=== PATIENT | male | born 1955 | race Caucasian/White ===

== ENCOUNTER 2016-12-09 12:17 | Inpatient (IN) | payer BC ==
--- NOTE | ~2016-12-09 | CN ---
Consultation Report [facility] [address] [place]. [address] NAME: CHARLETTE JONES II : 53 STATUS : ADM IN PAT#: [id number] AGE: 61 ADM/REG DATE : 12/09/16 MR#: [id number] REPORT SERV DATE: 12/10/16 DICTATED BY: CONNOR JAUREGUI DATE: 12/10/16 REPORT STATUS : Draft TRANSCRIBED BY: MODL DATE: 12/10/16 INFECTIOUS DISEASE CONSULT DATE OF CONSULTATION: REASON FOR REFERRAL: Evaluation and treatment of possible foot infection. HISTORY OF PRESENT ILLNESS: This patient is a 61-year-old male. He has a history of diabetes mellitus, has been poorly controlled. He has not really been followed closely by anyone after his previous primary care physician moved away from the [facility]. He has peripheral neuropathy, has a severe Charcot malformation in his left foot. Last year, he was treated several times for cellulitis of that foot with no certain evidence that the bone was infected. He had prior infections of knee and also osteomyelitis of the hand. Whenever cultures have been taken and are positive, they have always shown methicillin- resistant Staph aureus. Beginning in March, he was followed by Dr. Campbell of [facility] who felt that the Charcot malformation was causing a lot of his problems and has worked on alleviating the difficulties with that with custom made shoes etc. over the last year. In the last several months, the foot has become increasingly warm and red. He has poor sensation in it, is not complaining of pain. He had an unexplained episode of methicillin-resistant Staph aureus in his blood in September and also uncertain treatment for that. He has had other complaints such as low-back pain and has been admitted for a more thorough evaluation of all of this. His white blood cell count, sed rate, and C-reactive protein are all markedly elevated. Imaging of the foot has been difficult to interpret because of Charcot malformation. A biopsy done by Interventional Radiology was negative for osteo, but he is being considered for an open procedure by Dr. Campbell today to get better visualization and do a better directed biopsy. He has not been on any antibiotics since October here. He has had a temperature max of 99.9. PAST MEDICAL HISTORY: Otherwise unremarkable. MEDICATIONS: As mentioned above. ALLERGIES: HE HAS NO KNOWN ANTIMICROBIAL ALLERGIES. 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 HE IS UNMARRIED. HE IS CURRENTLY NOT SMOKING. NO HISTORY OF ALCOHOL OR SUBSTANCE ABUSE. FAMILY HISTORY: Diabetes and hypertension. PHYSICAL EXAMINATION: GENERAL: Nontoxic, adult male, in no acute distress. He is alert and oriented x3. VITAL SIGNS: His temperature is 99.9, pulse 78, respirations 16, blood pressure 139/80, weight 108 kg. HEENT: Sclerae clear. No oral lesions. NECK: Supple without lymphadenopathy. Consultation Report [facility] [id number] [place]. [address] NAME: CHARLETTE JONES II : 53 STATUS : ADM IN PAT#: [id number] AGE: 61 ADM/REG DATE : 12/09/16 MR#: [id number] REPORT SERV DATE: 12/10/16 DICTATED BY: CONNOR JAUREGUI DATE: 12/10/16 REPORT STATUS : Draft TRANSCRIBED BY: DIONICIO DATE: 12/10/16 LUNGS: Clear. HEART: Regular rate and rhythm. No murmurs appreciated. ABDOMEN: Soft, nontender. Positive bowel sounds. EXTREMITIES: Left foot is markedly swollen with a Charcot malformation laterally. It is hot and red. There are no open lesions. No drainage. No fluctuance palpated. No other extremity skin or soft tissue lesions. LABORATORY DATA: White count 14.7, hematocrit 31.7, platelets 487. Sedimentation rate 95. BUN and creatinine 16 and 0.92, procalcitonin 0.2. His C-reactive protein is 168. Blood cultures taken just yesterday afternoon remain negative. An x-ray of his spine plain films have shown some abnormalities in the lumbar spine but no clear evidence of osteomyelitis. The transthoracic echocardiogram showed no valve lesions. IMPRESSION: Suspect that he indeed has an infection that is the cause of his acute phase reactant elevations of the foot seems to me to be the most likely source at present based on the workup thus far. RECOMMENDATIONS: 1. Agree with the bone biopsy as planned by Dr. Campbell. I would recommend proceeding with that. 2. Hold antibiotics after the procedure and then I would begin empiric vancomycin. Finally, I will follow the patient with you. I appreciate very much your consulting on this patient. MIKE Connor Jauregui M.D. / [id number] CC: Gerda Leyva DO
--- NOTE | ~2016-12-09 | OP ---
Record Of Operation [facility] [address] [place]. [address] NAME: CHARLETTE JONES II : 53 STATUS : ADM IN PAT#: [id number] AGE: 61 ADM/REG DATE : 12/09/16 MR#: [id number] REPORT SERV DATE: 12/13/16 DICTATED BY: RAHEL GERARD DATE: 12/13/16 REPORT STATUS : Draft TRANSCRIBED BY: DIONICIO DATE: 12/13/16 DATE OF PROCEDURE: 12/13/2016 PREOPERATIVE DIAGNOSES: 1. Left midfoot Charcot arthropathy. 2. Left midfoot osteomyelitis. POSTOPERATIVE DIAGNOSES: 1. Left midfoot Charcot arthropathy. 2. Left midfoot osteomyelitis. PROCEDURE: Left below-knee amputation. ANESTHESIA: General. COMPLICATIONS: None. INDICATION FOR OPERATION: Charlette Jones is a pleasant 61-year-old male, with longstanding history of pain and problems with his left foot. He was diagnosed with Charcot arthropathy. He has been treated non-operatively with mobilization and periods of limited weightbearing. Workup to rule out infection included MRIs with gadolinium as well as needle aspiration of the midfoot as well as bone biopsy. These failed to reveal infection. It is felt that he developed a late hematogenous seeding of his midfoot. He has had prior finger amputation as well as a left knee wound, both of which were infected with MRSA. I felt that at some point the infection seeded his left foot. Risks and benefits of surgical intervention were discussed at length with the patient. Preoperative counseling with prosthesis was performed as well. All of his questions were answered. He wished to proceed. DESCRIPTION OF PROCEDURE: Mr. Jones was brought back to operating room after general anesthesia was initiated. Left lower extremity was prepped and draped in usual sterile fashion. Impermeable stockinette was placed over the foot, leg was elevated, and a well- padded thigh tourniquet was inflated. Proposed surgical incisions were drawn on the skin. We made our tibial cut approximately 15 to 17 cm distal to the medial joint line. The long posterior flap was utilized as it was felt that his blood supply at the mid tibia was adequate for healing. Proposed surgical incisions were drawn on the skin. A #10 knife blade was used to perform a full-thickness skin incisions. We used a "no-touch" technique throughout the case. An incision was brought down to the tibia anteriorly where a small periosteal flap was elevated. A beveled tibial cut was made. Next, we carefully dissected out the fibula. Fibular cut was made a centimeter or so proximal to the tibial cut. We used a small sagittal saw. Next, we completed the amputation with a beveled cut of the posterior flap. The 3 major neurovascular bundles were isolated. The arterial and venous structures were carefully dissected out, clamped, and ligated with doubled 0 silk ties. Local smaller vessels were cauterized. Slow cauterization of the nerves was performed followed by bearing the distal stumps of the nerve in the surrounding musculature. At this Record Of Operation [address] [place]. [address] NAME: CHARLETTE JONES II : 53 STATUS : ADM IN [facility]#: [id number] AGE: 61 ADM/REG DATE : 12/09/16 MR#: [id number] REPORT SERV DATE: 12/13/16 DICTATED BY: RAHEL GERARD DATE: 12/13/16 REPORT STATUS : Draft TRANSCRIBED BY: MODL DATE: 12/13/16 time, tourniquet was deflated. Additional cauterization was performed as needed. The wound bed was dry. A myodesis was performed with suturing of the posterior flap into the distal tibia through small drill holes. Additional deep fascial closure was performed with interrupted #1 Ethibond suture. Subcutaneous tissues and skin were closed using a "no- touch" technique with final skin closure being interrupted 2-0 nylon suture. Bulky sterile dressings were applied and the knee was mobilized in an appropriately fitting knee immobilizer. The patient did well throughout the case. He awoke in the operating room and was transferred to recovery room in satisfactory condition. MMB/TRACYL Rahel Gerard MD / [id number] CC: Gerda Leyva DO
--- NOTE | ~2016-12-09 | IDS ---
Interim Discharge Summary [facility] [address] [place]. [address] NAME: CHARLETTE JONES II : 53 STATUS : ADM IN [facility]#: [id number] AGE: 61 ADM/REG DATE : 12/09/16 MR#: [id number] REPORT SERV DATE: 12/13/16 DICTATED BY: DATE: REPORT STATUS : Draft TRANSCRIBED BY: MODL DATE: 12/13/16 ADMISSION DATE: 12/09/2016 DISCHARGE DATE: The patient is admitted to the [facility] Hospitalist Service. CONSULTANTS: Include Dr. Paul Campbell of Orthopedics and Dr. Tristan Hanson of Infectious Disease. CURRENT DIAGNOSES: 1. MRSA bacteremia. 2. MRSA osteomyelitis of the left foot-for left BKA today. 3. Left foot cellulitis. 4. History of Charcot arthropathy of the left foot. 5. History of hypertension-not presently requiring medication. 6. History of diabetes mellitus type 2-diet controlled here with last known hemoglobin A1c 7.5 in November. 7. Severe protein calorie malnutrition-due to prolonged illness, eating well, presently. 8. Hyponatremia at admission-due to polydipsia. Patient counseled. Sodium values improved. 9. Mild anemia-suspect due to chronic inflammation. IMAGING AND DIAGNOSTICS: 1. Bilateral lower extremity venous Doppler ultrasound 12/09 to rule out DVT shows no evidence of DVT. Prominent lymph nodes in the left groin reactive given history of left foot osteomyelitis. 2. Arterial Dopplers of bilateral lower extremities shows no Doppler evidence of significant right lower extremity arterial occlusive disease. Femb-tj-vvsnrfrz left lower extremity arterial occlusive disease originating at the iliac with biphasic flow seen in the left common femoral artery. Some superimposed infrapopliteal arterial occlusive disease with hyperemic monophasic flow in the calf vessels. Left ankle- brachial index is normal but suspect may be falsely elevated due to poor vessel compressibility. 3. Plain films of the thoracic and lumbar spine on 12/09 to evaluate for discitis shows mild compression deformity of superior endplate of T12 and L1. Age indeterminate. 4. Plain films of the left foot show extremely severe osteolytic destruction of the bones of the left foot involving most of the bones and the proximal metatarsals as well. Destruction considerably worse from prior exam of 03/19/2016. 5. PA lateral chest x-ray 12/09 for fevers shows clear lungs. 6. Echocardiogram, 12/09 shows no evidence of valvular vegetations. PERTINENT LABS: 1. Blood cultures x2 on 12/09 positive for MRSA. 2. Surgical cultures 12/11 positive for MRSA. BRIEF HISTORY: For full details please see the previously dictated history of present Interim Discharge Summary [facility] [place]. [address] NAME: CHARLETTE JONES II : 53 STATUS : ADM IN PAT#: [id number] AGE: 61 ADM/REG DATE : 12/09/16 MR#: [id number] REPORT SERV DATE: 12/13/16 DICTATED BY: DATE: REPORT STATUS : Draft TRANSCRIBED BY: MODL DATE: 12/13/16 illness. Mr. Jones is a 61-year-old white male who has been treated for multiple episodes of left foot cellulitis, and episodes of MRSA bacteremia since the summer. He was being followed in the outpatient setting by Dr. Paul Campbell with concern for possible left foot osteomyelitis, but recently negative or nondefinitive MRI of the left foot and CT-guided bone biopsy. Despite this, patient was continuing to experience intermittent low-grade fevers, night sweats, nausea, and vomiting when febrile, progressive weakness, and decline in oral intake. Because of progressive general decline and for open bone biopsy, the patient was admitted to the Hospitalist Service on 12/09. HOSPITAL COURSE: Multiple initial diagnostics were obtained to evaluate for source and sequelae of MRSA bacteremia. The patient did have blood cultures which were positive in 09/2016, but for an unknown reason, the patient was not aware of these results and was not treated at that point. He did have some back pain at admission in addition to left foot pain. His back was imaged to ensure no seeding of vertebral bodies, and the plain films were normal. Echocardiogram was obtained to ensure no valvular vegetations and was normal. The patient underwent an open bone biopsy by Dr. Paul Campbell on 12/10. He also had incision and drainage of 2 fluid pockets at that point. Cultures from the left foot demonstrated MRSA, and blood cultures were positive as well. Infectious Disease was consulted and patient was initiated on vancomycin. The resultant surgical pathology demonstrated acute osteomyelitis and patient is scheduled for a left kjdiv-ecw-kozh amputation today. Anticipate that he will require physical therapy evaluation and rehab placement following hospitalization. Dr. Hanson also would like the patient to receive 2 weeks of vancomycin via PICC line following amputation given that he has MRSA bacteremia. He will require surveillance blood cultures 1-2 weeks after discontinuation in order to document clearance. The patient has history of other chronic medical conditions such as hypertension and non- insulin-dependent diabetes mellitus type 2. Also reportedly has a history of hypothyroidism and was noted to be hyponatremic at admission. His blood pressure has not been sufficiently elevated to require any medications this admission, nor have his blood sugars. His last A1c is 7.5 in November, but suspect that he is now diet controlled due to recent 30 to 40 pound weight loss from illness. TSH was checked here and was normal. Regarding hyponatremia, patient has been in the habit of consuming over 200 ounces of plain water daily, because he thought this would help with his diabetes. He was counseled to likely consume no more than 64 ounces daily to avoid hyponatremia due to polydipsia. DISPOSITION: The patient remains hospitalized for left below the knee amputation with postop rehab eval and rehab placement pending as well as 2 additional weeks of IV antibiotics and repeat surveillance blood cultures as above. AKS/MODL Interim Discharge Summary [address] [address] NAME: CHARLETTE JONES II : 53 STATUS : ADM IN [facility]#: [id number] AGE: 61 ADM/REG DATE : 12/09/16 MR#: [id number] REPORT SERV DATE: 12/13/16 DICTATED BY: DATE: REPORT STATUS : Draft TRANSCRIBED BY: DIONICIO DATE: 12/13/16 Miguel Chambers M.D. / [id number] CC: Gerda Leyva DO
--- NOTE | ~2016-12-09 | OP ---
Record Of Operation [facility] [address] [place]. [address] NAME: CHARLETTE JONES II : 53 STATUS : ADM Pepper PAT#: [id number] AGE: 61 ADM/REG DATE : 12/09/16 MR#: [id number] REPORT SERV DATE: 12/10/16 DICTATED BY: RAHEL GERARD DATE: 12/10/16 REPORT STATUS : Draft TRANSCRIBED BY: MODEvelio DATE: 12/10/16 DATE OF PROCEDURE: 12/10/2016 PREOPERATIVE DIAGNOSES: 1. Diabetes with neuropathy. 2. Left foot Charcot. 3. Possible left foot osteomyelitis. POSTOPERATIVE DIAGNOSES: 1. Diabetes with neuropathy. 2. Left foot Charcot. 3. Possible left foot osteomyelitis. PROCEDURE: 1. Left foot medial bone biopsy. 2. Left foot lateral bone biopsy. 3. Irrigation and debridement down to including bone, left medial wound. 4. Irrigation and debridement down to including bone, left lateral wound. ANESTHESIA: General. COMPLICATIONS: None. SPRINKLER TENDER: None. INDICATION FOR OPERATION: Charlette Jones is a pleasant 61-year-old male with a long- standing and complicated course involving his left lower extremity. He has been treated repeatedly for cellulitis as well as Charcot arthropathy. He underwent previous needle aspiration of the foot as well as bone biopsy. Both were negative for deep infection. Due to the continued symptoms despite prior antibiotics, I propose the above-mentioned surgery. Risks and benefits of this surgical intervention were discussed at length with the patient as well as his son. All other questions were answered. They wished to proceed. Mr. Jones was brought back to the operating room, where general anesthesia was initiated. Left lower extremity was prepped and draped in usual sterile fashion. Leg was elevated, and well-padded calf tourniquet was inflated. A medial lateral surgical approach to the mid foot was performed. Longitudinal incision was made medially at the interval between the posterior tibial and anterior tibial tendons. Blunt dissection was used to protect local neurovascular structures. Deep dissection was performed through the deep fascia. This opened up the medial hindfoot and midfoot joints. There was some cloudy appearing fluid. There is no gross purulence. We sent samples of tissue and fluid for aerobic and anaerobic cultures as well as Gram stain. We also performed a deep bone biopsy. This has been included bones of the calcaneus as well as the talus. Bone was sent to pathology for evaluation. Next, we approached the lateral hindfoot. An incision was made extending from the tip of the fibula towards the base of the fourth metatarsal. Incision was carried deeper. We exposed what appeared to be a large fluid collection of cloudy appearing fluid. Record Of Operation [facility] [address] [place]. [address] NAME: CHARLETTE JONES II : 53 STATUS : ADM Pepper PAT#: [id number] AGE: 61 ADM/REG DATE : 12/09/16 MR#: [id number] REPORT SERV DATE: 12/10/16 DICTATED BY: RAHEL GERARD DATE: 12/10/16 REPORT STATUS : Draft TRANSCRIBED BY: DIONICIO DATE: 12/10/16 Deeper dissection was performed which exposed bones of the hindfoot and the midfoot. Again, deep tissue as well as fluid was sent separately for this lateral wound. We also sent a deep bone biopsy to pathology as well as microbiology for full evaluation. At this time, copious irrigation was performed. Sequential irrigation and debridement was performed with the use of a Pulsavac until all necrotic and devitalized tissue had been thoroughly removed. Once the debridement was completed, the wound was packed with 1 inch iodoform Nu Gauze. Bulky sterile dressings were applied, and a well-padded posterior splint was placed. The patient did well throughout the case. He awoke in the operating room and was transferred to recovery room in satisfactory condition. We had a preoperative discussion with Mr. Jones regarding the potential diagnosis of osteomyelitis of his midfoot. We discussed future treatment options to include below-knee amputation. OSCAR/DIONICIO Rahel Gerard MD / [id number] CC: Gerda Leyva DO
--- NOTE | ~2016-12-09 | DS ---
Discharge Summary [facility] [address] [place]. [address] NAME: CHARLETTE JONES II : 53 STATUS : DIS IN PAT#: [id number] AGE: 61 ADM/REG DATE : 12/09/16 MR#: [id number] REPORT SERV DATE: 12/16/16 DICTATED BY: PAUL ANTHONY DATE: 12/16/16 REPORT STATUS : Draft TRANSCRIBED BY: MODL DATE: 12/16/16 ADMISSION DATE: 12/09/2016 DISCHARGE DATE: 12/16/2016 FINAL DIAGNOSES: 1. Methicillin-resistant Staphylococcus aureus bacteremia. 2. Methicillin-resistant Staphylococcus aureus left foot osteomyelitis, status post below knee amputation. 3. Diabetes. 4. Status post hyponatremia. 5. Chronic anemia. CONSULTATION: Dr. Hanson, for ID consultation. HOSPITAL COURSE: Please refer to the H and P done by Dr. Chambers dated on 12/09/2016 and her interim discharge summary done on 12/13/2016. Since I took care of this patient, the patient is status post BKA and pathology showed that there was viable tissue at the margins of the operation. The patient was seen by Ortho afterwards and they cleared the patient for rehab. Meanwhile, ID has been following up the patient, followed up all the cultures and recommended vancomycin until 12/27/2016, they also signed off. The patient worked with PT, and now, we got approval for the patient to go to [facility], so the patient will be discharged there for rehab. He will be following up with the rehab doctor, then follow up with the PCP, Garth Rosas, after rehab discharge, then follow up with Ortho, Dr. Campbell in two weeks. The patient will be on the following medications. Colace 100 mg twice a day subcu insulin protocol level 1, metformin 500 mg twice a day, vancomycin q.12 hours 1500 mg until 12/27/2016, Percocet 5/325 one tab p.o. q.6 hours p.r.n. The patient will have his blood work taken CBC, basic metabolic panel, and vancomycin trough to be sent to Dr. Hanson while the patient is on vancomycin. This has been explained to the patient, he agreed and understood the plan. DERIAN/DIONICIO Paul Anthony M.D. / [id number] CC: Gerda Chen DO
--- NOTE | ~2016-12-09 | HP ---
History And Physical [address] [place]. [address] NAME: CHARLETTE JONES II : 53 STATUS : ADM [facility]#: [id number] AGE: 61 ADM/REG DATE : 12/09/16 MR#: [id number] REPORT SERV DATE: 12/09/16 DICTATED BY: DATE: REPORT STATUS : Draft TRANSCRIBED BY: MODL DATE: 12/09/16 DATE OF ADMISSION: 12/09/2016 The patient was admitted to the [facility]. CHIEF COMPLAINT: Left foot pain, failure to thrive. HISTORY OF PRESENT ILLNESS: Mr. Jones is a 61-year-old white male, who had minimal past medical history prior to 09/2015 when he developed right middle finger osteomyelitis and underwent irrigation and debridement of the right middle finger with a partial tibial amputation. The patient was found to have MRSA in the bone as well as two sets of blood cultures and was treated with oral antibiotics for 10 days following the amputation. In 01/2016, he required repeat incision and drainage of the finger, with culture also growing sparse MRSA. Then, the patient began to develop cellulitic changes in the left foot, with multiple hospitalizations at [facility] between 02/2016 and 03/2016 for MRSA cellulitis. He was seen by Dr. Jimmie Glez last March for the left lower extremity cellulitis and treated with vancomycin. He was also seen in consultation during the 03/[address] Paul Campbell of Orthopedics. Moving forward to 2016, the patient recently has been experiencing an increase in the swelling and pain in his left foot for which Dr. Campbell has continued to follow him. The patient recently went through a transition on primary care providers and is now seeing Dr. Eliud Rosas had his first appointment with him in November. The patient also had a recent [facility] Emergency Department visit with nonspecific symptoms of shortness of breath and underwent extensive diagnostics which were normal. He reports that he was sent home on an unknown antibiotic from the emergency department. On 12/01/2016, he was scheduled as an outpatient for a CT-guided biopsy of the left foot to evaluate for osteomyelitis. There has been documented concern for over a year now that the patient may have acute or chronic osteomyelitis in the left foot. He has a history of Charcot arthropathy, and this has confounded some of the ability to interpret imaging results. The biopsy which occurred on 12/01/2016 did not demonstrate acute osteomyelitis, and the patient was following up in Dr. Campbell's office for the results of that pathology today. Dr. Campbell's office contacted the Hospitalist Service for admission because the patient's left foot has become progressively swollen, red, painful from recent outpatient evaluations. Also the patient and his son were endorsing many symptoms of failure to thrive for the past year including fevers and chills, night sweats, poor oral intake, 30-pound weight loss, nausea, vomiting, loose stools, and weakness. 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 The patient and his son are concerned for the progressive debility, and concerned that there is not yet an explanation for the patient's symptoms which began over a year ago now. The patient does have a past history of diabetes which used to be poorly controlled, but recently has not requiring any medication and reports that his blood sugars are less than History And Physical [address] [address] [facility] [place]. [address] NAME: CHARLETTE JONES II : 53 STATUS : ADM [facility]#: [id number] AGE: 61 ADM/REG DATE : 12/09/16 MR#: [id number] REPORT SERV DATE: 12/09/16 DICTATED BY: DATE: REPORT STATUS : Draft TRANSCRIBED BY: MODL DATE: 12/09/16 130 when he checks. He used to have hypertension, but with weight loss, he is not requiring any medications for that. He has a documented history of hypothyroidism, but is not currently taking thyroid replacement therapy. He also has a history of peripheral neuropathy. REVIEW OF SYSTEMS: A full 14-point review of systems is as dictated in the history of present illness. PAST MEDICAL HISTORY: Includes 1. 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 2. History of MRSA bacteremia, as recently as 09/29/2016. Unknown whether the patient was treated for MRSA bacteremia at this point. He also had MRSA bacteremia in 09/2015. 3. History of Charcot arthropathy in the left foot, with recurrent cellulitis and ongoing concern for osteomyelitis. 4. Mzd-zhughjf-nzyngwcet diabetes mellitus type 2-currently diet controlled. 5. Hypertension. 6. Hypothyroidism. 7. Peripheral neuropathy. PAST SURGICAL HISTORY: Includes right middle finger surgery incision and drainage and also recent CT-guided bone biopsy of the left foot. ALLERGIES: NO KNOWN DRUG ALLERGIES. MEDICATIONS: Current medications include Excedrin Extra Strength taken as needed. SOCIAL HISTORY: The patient is unmarried. His son is here at the bedside. He used to work inspecting homes, but is presently unable to work due to symptoms above. No history of tobacco, alcohol, or illicit substances. FAMILY HISTORY: Diabetes and hypertension. PHYSICAL EXAMINATION: VITAL SIGNS: Temperature 98.7, pulse 92, respirations 18, oxygen saturations 97% on room air, and blood pressure 132/79. GENERAL: This is a well-developed, well-nourished appearing white male, in no acute distress. Alert and oriented in three dimensions. Pleasant, with a sarcastic sense of humor. HEENT: Normocephalic, atraumatic. Pupils are equally round and reactive to light. No scleral icterus. No conjunctival pallor. No sinus tenderness to palpation. No nasal drainage. Oropharynx moist and pink with no posterior pharyngeal erythema or exudate. NECK: Supple with no lymphadenopathy. No jugular venous distention. No thyromegaly. CARDIOVASCULAR: Regular rate and rhythm. No murmurs, rubs or gallops. LUNGS: Clear to auscultation bilaterally. No wheezes or crackles. No rhonchi. ABDOMEN: Soft, nontender, and nondistended with normoactive bowel sounds in four quadrants and no hepatosplenomegaly. History And Physical [address] [address] NAME: CHARLETTE JONES II : 53 STATUS : ADM [facility]#: [id number] AGE: 61 ADM/REG DATE : 12/09/16 MR#: [id number] REPORT SERV DATE: 12/09/16 DICTATED BY: DATE: REPORT STATUS : Draft TRANSCRIBED BY: MODEvelio DATE: 12/09/16 EXTREMITIES: No cyanosis, clubbing, or edema of the right lower extremity. Left lower extremity is swollen 2+ to 3+, with nonpitting edema, exquisite tenderness to palpation of the left heel, and the left forefoot has diminished sensation. The patient is also tender along the Achilles tendon and with flexion and extension of the left foot. The edema extends up to the knee, but there is no erythema, lymphangitis, or tenderness to palpation of the lower aspect of the left leg. NEUROLOGIC: Cranial nerves 2 through 12 were tested and are intact. Deep tendon reflexes 2+ bilateral brachioradialis and patellar tendons. Sensation is intact to fine touch and temperature everywhere except in the feet. Strength is globally diminished at 4- out of 5. LABORATORY DATA: Recent labs from the patient's primary care provider were reviewed. Pertinent for sodium of 131, creatinine 1.05, glucose 118. Liver enzymes normal with the exception of alkaline phosphatase 118. Hemoglobin A1c was 7.5. Recent white blood cell count 15.6, hemoglobin 11.4, hematocrit 34.1, platelets 498. INR 1.4. Urinalysis from 11/17/2016 was negative. Recent imaging was reviewed as well. On 09/29/2016, the patient had plain films of the left ankle showing progressive Charcot arthropathy. On 11/11/2016, he had an MRI of the left lower extremity showing severe progressive destruction of the left midfoot with a pattern of development most suggestive of Charcot arthropathy. No superficial soft tissue ulcers. Minimal residual midfoot bones remaining and marrow edema involving metatarsals in hind foot including calcaneus and talus. Interval development of a small tibiotalar joint effusion and a 5 x 3 cm septated fluid collection over the dorsal lateral aspect of the midfoot. On 11/21/2016, the patient went to the emergency department with shortness of breath and had a PA and lateral chest x-ray which was normal. A CTA of the chest, which was negative for pulmonary embolism and showed mild cardiomegaly, but no congestive heart failure and also revealed nonspecific hepatic steatosis. He had a Doppler ultrasound of the left lower extremity showing no evidence of DVT but, some left inguinal adenopathy representing possible reactive change versus lymphoma or metastatic disease. IMPRESSION: 1. Left foot pain and swelling, from the heel and involving the Achilles - with ongoing suspicion for possible chronic versus acute osteomyelitis, in the context of advanced Charcot arthropathy. 2. 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 3. Symptoms of failure to thrive, progressive over the past year-including fever, chills, night sweats, poor oral intake, nausea, vomiting, diarrhea, weight loss, weakness progressive to the point that patient is no longer able to work. PLAN: 1. Observation and admission to room 509 - attending doctor, Miguel Chambers M.D. 2. Orthopedic consultation requested from Dr. Campbell. In discussion earlier today, he mentioned the possible need to perform an open bone biopsy of the left foot as the recent CT-guided biopsy did not yield any bacteria. However, the patient was recently treated with an unknown antibiotic for an upper respiratory tract infection, and this may have influenced the results. 3. Puente cultures - blood cultures, urine with urine culture if indicated, sputum if able to History And Physical [address] [address] NAME: CHARLETTE JONES II : 53 STATUS : ADM [facility]#: [id number] AGE: 61 ADM/REG DATE : 12/09/16 MR#: [id number] REPORT SERV DATE: 12/09/16 DICTATED BY: DATE: REPORT STATUS : Draft TRANSCRIBED BY: MODL DATE: 12/09/16 produce. Check a procalcitonin and lactic acid level as well. 4. Check stool studies if the patient is able to produce. 5. Check a peripheral blood smear to evaluate for any morphologic abnormalities. 6. Check chest x-ray, echocardiogram to rule out valvular vegetations, plain films of the thoracic spine and lumbar spine. This patient reported a recent history of some "kidney pain", and could be referring pain from vertebral bodies which could have been previously seeded. 7. No empiric antibiotics at present, in hopes of increasing the yield of any potential bone biopsies to occur this admission. 8. We will have a low threshold for involving Infectious Disease in consultation pending the results of the above workup. BERNARDO/DIONICIO Miguel Chambers M.D. / [id number] CC: Gerda Leyva DO Matthew M. Buchanan, MD
[~2016-12-09 12:17] MED LIST: ANTIBIOTIC CREAM TOP; AUG875 PO; CEFT5 PO; EXCEDRIN EXTRA1 EACH PO; FLORASTOR250 MG PO; GLUCOPHAGE1000 MG PO; GLUCPH PO; K500 PO; LEVOTHYROXIN25 MCG PO; MICONAZOLE2 % TOP; MONODOX100 MG PO; NEUR300 PO; PCET PO; PR25 PO; PRINZIDE1 TA1 PO; PROBIOTIC PO; SYN.025B PO; ZYVOXPO PO
[2016-12-09] MEDS ORDERED: EXCEDRIN EXTRA1 EACH PO (12:39)
[2016-12-09 15:57] LABS: BASOPHILS 0.3 %; BASOPHILS ABSOLUTE 0.05 10/3/uL (0.0-0.16); EOSINOPHILS 0.1 %; EOSINOPHILS ABSOLUTE 0.01 10/3/uL (0.0-0.53); HEMATOCRIT 31.7 % (40.0-51.0); HEMOGLOBIN 10.6 g/dL (13.6-17.8); IMMATURE GRANULOCYTES 0.4 %; IMMATURE GRANULOCYTES ABSOLUTE 0.06 10/3/uL (0.0-0.11); LYMPHOCYTES 13.9 %; LYMPHOCYTES ABSOLUTE 2.05 10/3/uL (0.67-4.30); MANUAL DIFF NO %; MEAN CORPUS HGB CONC 33.4 g/dL (32.0-36.0); MEAN CORPUSCULAR HEMOGLOB 26.6 pg (26.0-34.0); MEAN CORPUSCULAR VOLUME 79.6 fL (80-100); MEAN PLATELET VOLUME 8.8 fL (9.2-13.0); MONOCYTES 7.4 %; MONOCYTES ABSOLUTE 1.09 10/3/uL (0.21-1.20); NEUTROPHILS 77.9 %; NEUTROPHILS ABSOLUTE 11.44 10/3/uL (2.02-8.40); PLATELET COUNT 487 10/3/uL (150-400); RBC DISTRIBUTION WIDTH 16.1 % (12.0-16.0); RED CELL COUNT 3.98 10/6/uL (4.7-6.1); WHITE BLOOD CELLS 14.7 10/3/uL (4.5-10.5)
[2016-12-09 16:03] LABS: INTERNATIONAL NORMAL RATI 1.4 UNITS (-); PARTIAL THROMBO TIME 38.3 SEC (22.5-37.2); PROTIME (NOT ORD) 16.7 SEC (12.0-14.5)
[2016-12-09 16:13] LABS: BUN (BLOOD UREA NITROGEN) 16 MG/DL (6-23); CALCIUM, SERUM 8.4 MG/DL (8.5-10.4); CHLORIDE, SERUM 97 MMOL/L (96-112); CO2 (CARBON DIOXIDE) 27 MMOL/L (24-34); CREATININE 0.92 MG/DL (0.70-1.30); GFR AFRICAN AMERICAN 103 ML/MIN (>=60); GFR NON AFRICAN AMERICAN 89 ML/MIN (>=60); GLUCOSE, SERUM 141 MG/DL (60-99); POTASSIUM, SERUM 3.8 MMOL/L (3.5-5.3); PREALBUMIN 4.3 MG/DL (17.0-43.0); SGOT(AST) 43 U/L (5-40); SGPT(ALT) 19 U/L (5-65); SODIUM, SERUM 132 MMOL/L (135-148); TOTAL BILIRUBIN 0.8 MG/DL (0-1.2); TOTAL PROTEIN 8.1 G/DL (6.0-8.5)
[2016-12-09 16:14] LABS: A/G RATIO 0.3 (0.7-1.9); ALBUMIN 1.8 G/DL (3.5-5.0); ALKALINE PHOSPHATASE 152 U/L (45-117); GLOBULIN 6.3 G/DL (2.5-4.1)
[2016-12-09 18:01] LABS: SED RATE 95 MM/HR (0-15)
[2016-12-11 07:05] LABS: BASOPHILS 0.3 %; BASOPHILS ABSOLUTE 0.03 10/3/uL (0.0-0.16); EOSINOPHILS 2.3 %; EOSINOPHILS ABSOLUTE 0.26 10/3/uL (0.0-0.53); HEMATOCRIT 27.8 % (40.0-51.0); IMMATURE GRANULOCYTES 0.4 %; IMMATURE GRANULOCYTES ABSOLUTE 0.04 10/3/uL (0.0-0.11); LYMPHOCYTES ABSOLUTE 2.66 10/3/uL (0.67-4.30); MANUAL DIFF NO %; MEAN CORPUS HGB CONC 32.4 g/dL (32.0-36.0); MEAN CORPUSCULAR HEMOGLOB 26.1 pg (26.0-34.0); MEAN CORPUSCULAR VOLUME 80.6 fL (80-100); MEAN PLATELET VOLUME 8.5 fL (9.2-13.0); MONOCYTES 8.7 %; MONOCYTES ABSOLUTE 0.97 10/3/uL (0.21-1.20); NEUTROPHILS 64.3 %; NEUTROPHILS ABSOLUTE 7.13 10/3/uL (2.02-8.40); PLATELET COUNT 449 10/3/uL (150-400); RBC DISTRIBUTION WIDTH 16.3 % (12.0-16.0); RED CELL COUNT 3.45 10/6/uL (4.7-6.1); WHITE BLOOD CELLS 11.1 10/3/uL (4.5-10.5)
[2016-12-11 07:13] LABS: BUN (BLOOD UREA NITROGEN) 15 MG/DL (6-23); CALCIUM, SERUM 7.7 MG/DL (8.5-10.4); CHLORIDE, SERUM 100 MMOL/L (96-112); CO2 (CARBON DIOXIDE) 26 MMOL/L (24-34); CREATININE 0.82 MG/DL (0.70-1.30); GFR AFRICAN AMERICAN 110 ML/MIN (>=60); GFR NON AFRICAN AMERICAN 95 ML/MIN (>=60); POTASSIUM, SERUM 3.8 MMOL/L (3.5-5.3); SODIUM, SERUM 134 MMOL/L (135-148)
[2016-12-11 07:15] LABS: GLUCOSE, SERUM 107 MG/DL (60-99)
[2016-12-12 06:44] LABS: BASOPHILS 0.5 %; BASOPHILS ABSOLUTE 0.06 10/3/uL (0.0-0.16); EOSINOPHILS 3.7 %; HEMATOCRIT 28.1 % (40.0-51.0); HEMOGLOBIN 9.1 g/dL (13.6-17.8); IMMATURE GRANULOCYTES 0.5 %; IMMATURE GRANULOCYTES ABSOLUTE 0.05 10/3/uL (0.0-0.11); LYMPHOCYTES 25.8 %; LYMPHOCYTES ABSOLUTE 2.82 10/3/uL (0.67-4.30); MEAN CORPUS HGB CONC 32.4 g/dL (32.0-36.0); MEAN CORPUSCULAR HEMOGLOB 26.2 pg (26.0-34.0); MEAN PLATELET VOLUME 8.4 fL (9.2-13.0); MONOCYTES 7.3 %; NEUTROPHILS 62.2 %; NEUTROPHILS ABSOLUTE 6.79 10/3/uL (2.02-8.40); PLATELET COUNT 461 10/3/uL (150-400); RBC DISTRIBUTION WIDTH 16.4 % (12.0-16.0); RED CELL COUNT 3.47 10/6/uL (4.7-6.1); WHITE BLOOD CELLS 10.9 10/3/uL (4.5-10.5)
[2016-12-12 06:46] LABS: MANUAL DIFF NO %
[2016-12-12 06:52] LABS: CALCIUM, SERUM 8.1 MG/DL (8.5-10.4); CHLORIDE, SERUM 102 MMOL/L (96-112); CO2 (CARBON DIOXIDE) 28 MMOL/L (24-34); CREATININE 0.79 MG/DL (0.70-1.30); GFR AFRICAN AMERICAN 112 ML/MIN (>=60); GFR NON AFRICAN AMERICAN 96 ML/MIN (>=60); GLUCOSE, SERUM 98 MG/DL (60-99); POTASSIUM, SERUM 3.8 MMOL/L (3.5-5.3); SODIUM, SERUM 138 MMOL/L (135-148)
[2016-12-12 06:53] LABS: BUN (BLOOD UREA NITROGEN) 9 MG/DL (6-23)
[2016-12-13 05:45] LABS: BUN (BLOOD UREA NITROGEN) 12 MG/DL (6-23); CALCIUM, SERUM 8.3 MG/DL (8.5-10.4); CHLORIDE, SERUM 103 MMOL/L (96-112); CO2 (CARBON DIOXIDE) 28 MMOL/L (24-34); CREATININE 0.83 MG/DL (0.70-1.30); GFR AFRICAN AMERICAN 109 ML/MIN (>=60); GFR NON AFRICAN AMERICAN 94 ML/MIN (>=60); GLUCOSE, SERUM 102 MG/DL (60-99); SODIUM, SERUM 137 MMOL/L (135-148)
[2016-12-13 05:57] LABS: BASOPHILS 0.3 %; BASOPHILS ABSOLUTE 0.03 10/3/uL (0.0-0.16); EOSINOPHILS 5.7 %; EOSINOPHILS ABSOLUTE 0.53 10/3/uL (0.0-0.53); HEMATOCRIT 29.2 % (40.0-51.0); HEMOGLOBIN 9.4 g/dL (13.6-17.8); IMMATURE GRANULOCYTES 0.2 %; IMMATURE GRANULOCYTES ABSOLUTE 0.02 10/3/uL (0.0-0.11); LYMPHOCYTES 29.7 %; LYMPHOCYTES ABSOLUTE 2.79 10/3/uL (0.67-4.30); MEAN CORPUS HGB CONC 32.2 g/dL (32.0-36.0); MEAN CORPUSCULAR HEMOGLOB 25.9 pg (26.0-34.0); MEAN CORPUSCULAR VOLUME 80.4 fL (80-100); MEAN PLATELET VOLUME 8.8 fL (9.2-13.0); MONOCYTES 6.2 %; MONOCYTES ABSOLUTE 0.58 10/3/uL (0.21-1.20); NEUTROPHILS 57.9 %; NEUTROPHILS ABSOLUTE 5.43 10/3/uL (2.02-8.40); PLATELET COUNT 479 10/3/uL (150-400); RBC DISTRIBUTION WIDTH 16.5 % (12.0-16.0); RED CELL COUNT 3.63 10/6/uL (4.7-6.1); WHITE BLOOD CELLS 9.4 10/3/uL (4.5-10.5)
[2016-12-13 06:01] LABS: MANUAL DIFF NO %
[2016-12-14 05:32] LABS: BASOPHILS 0.3 %; BASOPHILS ABSOLUTE 0.03 10/3/uL (0.0-0.16); EOSINOPHILS 3.1 %; EOSINOPHILS ABSOLUTE 0.35 10/3/uL (0.0-0.53); HEMATOCRIT 26.9 % (40.0-51.0); HEMOGLOBIN 8.7 g/dL (13.6-17.8); IMMATURE GRANULOCYTES 0.4 %; IMMATURE GRANULOCYTES ABSOLUTE 0.05 10/3/uL (0.0-0.11); LYMPHOCYTES 19.3 %; LYMPHOCYTES ABSOLUTE 2.21 10/3/uL (0.67-4.30); MEAN CORPUS HGB CONC 32.3 g/dL (32.0-36.0); MEAN CORPUSCULAR HEMOGLOB 26.4 pg (26.0-34.0); MEAN CORPUSCULAR VOLUME 81.5 fL (80-100); MEAN PLATELET VOLUME 8.5 fL (9.2-13.0); MONOCYTES 6.4 %; MONOCYTES ABSOLUTE 0.73 10/3/uL (0.21-1.20); NEUTROPHILS 70.5 %; NEUTROPHILS ABSOLUTE 8.07 10/3/uL (2.02-8.40); PLATELET COUNT 451 10/3/uL (150-400); RBC DISTRIBUTION WIDTH 16.6 % (12.0-16.0); WHITE BLOOD CELLS 11.4 10/3/uL (4.5-10.5)
[2016-12-14 05:35] LABS: MANUAL DIFF NO %
[2016-12-14 05:46] LABS: BUN (BLOOD UREA NITROGEN) 9 MG/DL (6-23); CALCIUM, SERUM 7.9 MG/DL (8.5-10.4); CHLORIDE, SERUM 100 MMOL/L (96-112); CO2 (CARBON DIOXIDE) 29 MMOL/L (24-34); CREATININE 0.75 MG/DL (0.70-1.30); GFR AFRICAN AMERICAN 114 ML/MIN (>=60); GFR NON AFRICAN AMERICAN 98 ML/MIN (>=60); POTASSIUM, SERUM 3.9 MMOL/L (3.5-5.3); SODIUM, SERUM 136 MMOL/L (135-148)
[2016-12-14 05:47] LABS: GLUCOSE, SERUM 124 MG/DL (60-99)
[2016-12-15 06:56] LABS: BASOPHILS 0.2 %; BASOPHILS ABSOLUTE 0.02 10/3/uL (0.0-0.16); EOSINOPHILS 4.7 %; EOSINOPHILS ABSOLUTE 0.52 10/3/uL (0.0-0.53); HEMOGLOBIN 9.2 g/dL (13.6-17.8); IMMATURE GRANULOCYTES 0.4 %; IMMATURE GRANULOCYTES ABSOLUTE 0.04 10/3/uL (0.0-0.11); LYMPHOCYTES 22.5 %; LYMPHOCYTES ABSOLUTE 2.47 10/3/uL (0.67-4.30); MEAN CORPUS HGB CONC 32.9 g/dL (32.0-36.0); MEAN CORPUSCULAR HEMOGLOB 26.7 pg (26.0-34.0); MEAN CORPUSCULAR VOLUME 81.4 fL (80-100); MEAN PLATELET VOLUME 8.3 fL (9.2-13.0); MONOCYTES ABSOLUTE 0.99 10/3/uL (0.21-1.20); NEUTROPHILS 63.2 %; NEUTROPHILS ABSOLUTE 6.92 10/3/uL (2.02-8.40); PLATELET COUNT 453 10/3/uL (150-400); RBC DISTRIBUTION WIDTH 16.4 % (12.0-16.0); RED CELL COUNT 3.44 10/6/uL (4.7-6.1)
[2016-12-15 06:58] LABS: MANUAL DIFF NO %
== END 2016-12-16 13:46 | DRG 616 ==
LOC: 5SO 12:17
PROVIDERS: Hospitalist; Internal Medicine; Orthopaedic Surgery Foot and Ankle Surgery
PROC: 0QBM0ZZ Excision of Left Tarsal, Open Approach (ICD-10-PCS; principal; 2016-12-09)
PROC: 0QBM0ZX Excision of Left Tarsal, Open Approach, Diagnostic (ICD-10-PCS; 2016-12-09)
PROC: 0Y6J0Z2 Detachment at Left Lower Leg, Mid, Open Approach (ICD-10-PCS; 2016-12-13)
PROC: 02HV33Z Insertion of Infusion Device into Superior Vena Cava, Percutaneous Approach (ICD-10-PCS; 2016-12-15)
PROC: 4A02X4A Measurement of Cardiac Electrical Activity, Guidance, External Approach (ICD-10-PCS; 2016-12-15)
PROC: 3E04329 Introduction of Other Anti-infective into Central Vein, Percutaneous Approach (ICD-10-PCS; 2016-12-15)
DX: E11.69 Type 2 diabetes mellitus with other specified complication (principal); E43 Unspecified severe protein-calorie malnutrition; A52.16 Charcot's arthropathy (tabetic); M86.172 Other acute osteomyelitis, left ankle and foot; E87.1 Hypo-osmolality and hyponatremia; E11.42 Type 2 diabetes mellitus with diabetic polyneuropathy; I10 Essential (primary) hypertension; B95.62 Methicillin resistant Staphylococcus aureus infection as the cause of diseases classified elsewhere; D64.9 Anemia, unspecified; G62.9 Polyneuropathy, unspecified; E03.9 Hypothyroidism, unspecified; Z98.890 Other specified postprocedural states; Z89.021 Acquired absence of right finger(s); Z86.14 Personal history of Methicillin resistant Staphylococcus aureus infection; Z68.34 Body mass index [BMI] 34.0-34.9, adult; Z79.84 Long term (current) use of oral hypoglycemic drugs
CPT/HCPCS: 36569; 71020; 72072; 72100; 73610-LT; 73630-LT; 80048; 80053; 80202; 82150; 82962; 83605; 83690; 83735; 84134; 84145; 85025; 85610; 85652; 85730; 86140; 87040; 87070; 87075; 87077; 87150; 87186; 87205; 88305; 88307; 88311; 93005; 93306; 93925; 93970; 97110-GP; 97162-GP; 97166-GO; 97530-GP; A9270-GY; C1751; J1170; J2250; J2405; J3010; J3370